=== PATIENT | male | born 1980 | race Hispanic/Latino ===

== ENCOUNTER 2021-10-14 06:44 | Emergency (ER) | payer BC ==
[2021-10-14] MEDS ORDERED: Ketorolac Tromethamine 30 MG/ML VIAL ONE (07:54)
[2021-10-14] MEDS ORDERED: Fentanyl 100 MCG/2 ML VIAL ONE (07:55)
== END 2021-10-14 08:40 | disposition home or self-care (01) ==
LOC: CSHERS 06:44 → EDBD 06:44 → CSHERS 08:40
DX: K64.8 Other hemorrhoids (principal)
CPT/HCPCS: 96372; 99283; J1885; J3010